=== PATIENT | male | born 1980 | race Asian ===

== ENCOUNTER 2016-06-03 03:10 | Emergency (ER) | payer OTHER ==
[~2016-06-03] VITALS: Ht 172.7 cm; Wt 93.2 kg
[~2016-06-03 03:10] MED LIST: NOCURR
[2016-06-03] MEDS ORDERED: ALBUTEROL SULFATE 2.5 MG/0.5 ML NEB SOLUTION NEB ONE (04:45)
[2016-06-03] MEDS ORDERED: IPRATROPIUM BROMIDE 0.5 MG/2.5 ML NEB SOLUTION NEB ONE (04:45)
[2016-06-03] MEDS ORDERED: PredniSONE 20 MG TABLET PO ONE (04:45)
[2016-06-03 05:48] VITALS: BP 118/86
== END 2016-06-03 06:03 | disposition home or self-care (01) ==
LOC: EMS 03:12
DX: J20.9 Acute bronchitis, unspecified (principal); F17.210 Nicotine dependence, cigarettes, uncomplicated
CPT/HCPCS: 71010; 94640; 99283; J7512; J7613

== ENCOUNTER 2020-11-16 03:17 | Emergency (ER) | payer SELFPAY | END 2020-11-16 03:45 | disposition left against medical advice (07) | LOC: EMS 03:17 | DX: Z00.00 Encounter for general adult medical examination without abnormal findings (principal); Z53.21 Procedure and treatment not carried out due to patient leaving prior to being seen by health care provider ==